=== PATIENT | male | born 2000 | race Caucasian/White ===

== ENCOUNTER 2019-03-17 12:37 | Emergency (ER) | payer BC ==
[~2019-03-17] VITALS: Ht 182.9 cm; Wt 73.2 kg
[2019-03-17 14:00] LABS: BASO # 0.1 (0.0-0.2); BASO % 0.9 % (0.0-2.0); EOS # 0.4 (0.0-0.7); EOS % 4.6 % (0-4.0); GRAN # 5.1 (1.4-6.5); GRAN % 67.5 % (42.2-75.2); HEMATOCRIT 44.5 % (36.0-47.0); HEMOGLOBIN 15.6 g/dl (12.5-16.1); LYMPH # 1.2 (1.2-3.4); LYMPH % 16.4 % (20.0-51.0); MEAN CELL VOLUME 89 fl (80.0-95.0); MEAN CORPUSCULAR HEMOGLOBIN 31 pg (26.0-32.0); MEAN CORPUSCULAR HGB CONC 35 g/dl (33.0-37.0); MEAN PLATELET VOLUME 11.2 fl (7.4-10.4); MONO # 0.8 (0.1-0.6); MONO % 10.5 % (1.7-9.3); PLATELET COUNT 194 K/mm3 (130-400); RED BLOOD COUNT 4.98 M/mm3 (4.20-5.60); REDCELL DISTRIBUTION WIDTH-CV 12.7 % (11.5-14.5)
[2019-03-17 14:16] LABS: ALBUMIN 4.9 gm/dL (3.5-5.0); BILIRUBIN,TOTAL 0.7 mg/dL (0.0-1.0); C-REACTIVE PROTEIN 0.7 mg/dL (0.0-0.9); CALCIUM 9.9 mg/dL (8.4-10.2); CREATININE, serum 0.74 (0.66-1.25); POTASSIUM 4.4 mmol/L (3.4-5.0); TOTAL PROTEIN 8.1 gm/dL (6.4-8.2)
[2019-03-17 14:22] LABS: ERYTHROCYTE SEDIMENTATION RATE 1 mm/hr (0-15)
[2019-03-17 15:19] VITALS: BP 147/79; TEMP 98.8
[2019-03-17 15:54] VITALS: PULSE 47
== END 2019-03-17 15:54 | disposition home or self-care (01) ==
LOC: COL.ER 12:37
PROVIDERS: Physician Assistant
DX: R21 Rash and other nonspecific skin eruption (principal); Z88.0 Allergy status to penicillin
CPT/HCPCS: J8540

== ENCOUNTER 2019-03-20 08:44 | Emergency (ER) | payer BC ==
[~2019-03-20] VITALS: Ht 182.9 cm; Wt 73.8 kg
[2019-03-20 08:55] VITALS: BP 160/87; TEMP 98.4
[2019-03-20] MEDS ORDERED: PREDNISONE20 MG PO (09:19)
[2019-03-20] MEDS ORDERED: PEPCID 20MG TAB20 MG PO (09:19)
[2019-03-20 09:24] VITALS: PULSE 60
== END 2019-03-20 09:24 | disposition home or self-care (01) ==
LOC: COL.ER 08:44
DX: T78.40XA Allergy, unspecified, initial encounter (principal); R21 Rash and other nonspecific skin eruption; Z88.0 Allergy status to penicillin